=== PATIENT | female | born 1995 | race Caucasian/White ===

== ENCOUNTER 2022-05-14 15:19 | Emergency (ER) | payer OTHER ==
[~2022-05-14] VITALS: Ht 160 cm; Wt 56.8 kg
[2022-05-14 15:31] VITALS: BP 119/70
[2022-05-14] MEDS ORDERED: CYMB60CA4 PO (15:40)
[2022-05-14] MEDS ORDERED: TIZA4CAP PO (15:40)
[2022-05-14] MEDS ORDERED: GABA-1171 PO (15:40)
== END 2022-05-14 21:16 | disposition home or self-care (01) ==
LOC: M ED 15:19
DX: S50.12XA Contusion of left forearm, initial encounter (principal); V49.40XA Driver injured in collision with unspecified motor vehicles in traffic accident, initial encounter; M79.7 Fibromyalgia; Z91.040 Latex allergy status; Z79.899 Other long term (current) drug therapy